=== PATIENT | female | born 1950 | race Caucasian/White ===

== ENCOUNTER 2020-05-28 07:24 | Observation (INO) | payer MEDICARE ==
[2020-05-26 14:59] LABS: BASOPHILS # (AUTO) 0.1 (0.0-0.1); BASOPHILS % 1.1 % (0.0-1.0); EOSINOPHILS # (AUTO) 0.1 (0.0-0.4); HEMATOCRIT 41.2 % (34.2-44.1); HEMOGLOBIN 13.2 g/dL (12.0-16.0); LYMPHOCYTES # (AUTO) 0.9 (1.0-3.2); LYMPHOCYTES % 13.2 % (18.0-39.1); MEAN CORPUSCULAR HEMOGLOBIN 31.4 pg (28-32); MEAN CORPUSCULAR VOLUME 98.1 fL (81-99); MONOCYTES # (AUTO) 0.5 (0.2-0.8); MONOCYTES % 7.1 % (4.4-11.3); NEUTROPHILS # (AUTO) 5.4 (2.1-6.9); PLATELET COUNT 231 x10e3/uL (140-360); RED CELL DISTRIBUTION WIDTH 13.1 % (11.7-14.4)
[2020-05-26 15:09] LABS: INR 0.91; PROTHROMBIN TIME 12.8 seconds (11.9-14.5)
[2020-05-26 15:10] LABS: PARTIAL THROMBOPLASTIN TIME 29.6 seconds (23.8-35.5)
[2020-05-26 15:14] LABS: ANION GAP 15.7 mmol/L (8-16); BLOOD UREA NITROGEN 19 mg/dL (7-26); BUN/CREATININE RATIO 22 (6-25); CALCIUM 8.9 mg/dL (8.4-10.2); CARBON DIOXIDE 23 mmol/L (22-29); CHLORIDE 107 mmol/L (98-107); CREATININE, SERUM 0.86 mg/dL (0.57-1.11); EST GLOMERULAR FILTRATION RATE > 60 ML/MIN (60-); GLUCOSE 234 mg/dL (74-118); POTASSIUM 3.7 mmol/L (3.5-5.1); SODIUM 142 mmol/L (136-145)
[~2020-05-28] VITALS: Ht 152.4 cm; Wt 62.6 kg
[~2020-05-28 07:24] MED LIST: ACETAMINOPHEN 1000 MG/100 ML 100 ML IV ONE; ACTOS15 MG PO; DIGOXIN250 MCG PO; GLIMEPIRIDE4 MG PO; HYDROCODON-ACE1 EA11 PO; IBUPROFEN 800MG/ 200ML 200 ML IV ONE; LEFLUNOMIDE20 MG PO; LIDOCAINE HCL (LTA) 4 ML SOLN ONE; LOSARTAN POTASS25 MG PO; METFORMIN HCL500 MG PO; METOPROLOL SUCC50 MG PO; NAPROXEN250 MG PO; PREDNISONE5 MG PO; SOMA350 MG PO
[2020-05-28] MEDS ORDERED: VANCOMYCIN HCL 1 GM VIAL ONE (08:29)
[2020-05-28] MEDS ORDERED: THROMBIN FOR SOLN 5,000 UNIT VIAL ONE (08:30)
[2020-05-28] MEDS ORDERED: BUPIVACAINE 0.5%/EPI 30 ML SDV INJ ONE (08:30)
[2020-05-28] MEDS ORDERED: ONDANSETRON HCL INJ 2MG/ML 2ML 2 MG/ML VIAL ONE ×2 (09:23→12:46)
[2020-05-28] MEDS ORDERED: CEFAZOLIN SOD 1 GM/NS 50ML 100 ML IV ONE (09:29)
[2020-05-28] MEDS ORDERED: SCOPOLAMINE 1.5 MG PATCH ONE (10:10)
[2020-05-28] MEDS ORDERED: HYDROCODON-ACE1 EA12 PO (11:26)
[2020-05-28] MEDS ORDERED: ONDANSETRON HCL INJ 2MG/ML 2ML 2 MG/ML VIAL IV PRN (11:30)
[2020-05-28] MEDS ORDERED: ZOLPIDEM TARTRATE 5 MG TAB PO PRN (11:30)
[2020-05-28] MEDS ORDERED: CARISOPRODOL 350 MG TAB PO PRN (11:30)
[2020-05-28] MEDS ORDERED: MAGNESIUM/ALUMINUM/SIMETHICONE 30 ML UDC PO PRN (11:30)
[2020-05-28] MEDS ORDERED: ACETAMINOPHEN 325 MG TAB PO PRN (11:30)
[2020-05-28] MEDS ORDERED: HYDROMORPHONE 2MG/ML 2 MG/ML ML IV PRN (11:30)
[2020-05-28] MEDS ORDERED: MORPHINE SULFATE INJ 4 MG/ML INJ 1ML IM PRN (11:30)
[2020-05-28] MEDS ORDERED: PROMETHAZINE HCL (IM) 25 MG/ML VIAL IM PRN (11:30)
[2020-05-28] MEDS ORDERED: DEXAMETHASONE SOD PHOS INJ 4 MG/ML VIAL ONE (12:46)
[2020-05-28] MEDS ORDERED: PROPOFOL IV EMULSION 10 MG/ML 20 ML VIAL ONE (12:46)
[2020-05-28] MEDS ORDERED: NEOSTIGMINE 1 MG/ML 10ML VIAL ONE (12:46)
[2020-05-28] MEDS ORDERED: SEVOFLURANE INHAL SOLN 250 ML PEN BTL ONE (12:46)
[2020-05-28] MEDS ORDERED: ROCURONIUM BROMIDE 10 MG/ML 5ML VIAL IV ONE (12:46)
[2020-05-28] MEDS ORDERED: GLYCOPYRROLATE INJ 0.2 MG/ML VIAL ONE (12:46)
[2020-05-28] MEDS ORDERED: LIDOCAINE HCL 2% LOCAL INJ 5 ML SDV VIAL INJ ONE (12:46)
[2020-05-28] MEDS ORDERED: FENTANYL CITRATE/PF 100MCG/2 ML INJ ONE (13:48)
[2020-05-28] MEDS ORDERED: MIDAZOLAM HCL 2 MG/2 ML VIAL ONE (13:48)
[2020-05-28] MEDS ORDERED: CARISOPRODOL 350 MG TAB ONE (14:29)
[2020-05-28] MEDS: CARISOPRODOL 350 MG TAB PO SCH ×2 (14:29→19:41)
[2020-05-28] MEDS ORDERED: OXYCODONE/ACETAMINOPHEN 5-325 1 EACH TABLET ONE (14:29)
[2020-05-28 15:44] VITALS: BP 185/82
[2020-05-28 16:03] VITALS: BP 185/82
[2020-05-28] MEDS ORDERED: LACTATED RINGER'S 1,000 ML IV SCH (16:30)
[2020-05-28] MEDS ORDERED: LOSARTAN POTASSIUM 25 MG TAB PO SCH (17:00)
[2020-05-28] MEDS ORDERED: METOPROLOL SUCCINATE 50 MG TAB XL PO SCH (17:00)
[2020-05-28] MEDS: GLIMEPIRIDE 2 MG TAB PO SCH (17:44)
[2020-05-28] MEDS: CEFAZOLIN SOD 1 GM/NS 50ML 50 ML IV SCH (17:44)
[2020-05-28] MEDS: HYDROCORTISONE SOD SUCCINATE 100 MG VIAL IV SCH (18:24)
[2020-05-28] MEDS: OXYCODONE/ACETAMINOPHEN 5-325 1 EACH TABLET PO PRN (19:41)
[2020-05-28 19:45] VITALS: BP 144/84
[2020-05-28] MEDS: LOSARTAN POTASSIUM 25 MG TAB PO SCH (20:46)
[2020-05-28] MEDS: METOPROLOL SUCCINATE 50 MG TAB XL PO SCH (20:46)
[2020-05-28 21:00] VITALS: BP 144/84
[2020-05-28] MEDS ORDERED: DEXTROSE 50% SYRINGE 50 ML IV PRN (21:30)
[2020-05-28] MEDS: INSULIN REGULAR, HUMAN 100 UNIT/1 ML 3ML VIAL SQ SCH (21:34)
[2020-05-29] VITALS: BP 129/64
[2020-05-29] MEDS: HYDROCORTISONE SOD SUCCINATE 100 MG VIAL IV SCH (01:33)
[2020-05-29] MEDS: OXYCODONE/ACETAMINOPHEN 5-325 1 EACH TABLET PO PRN (01:33)
[2020-05-29] MEDS: CEFAZOLIN SOD 1 GM/NS 50ML 50 ML IV SCH (01:33)
[2020-05-29 04:45] VITALS: BP 165/77
[2020-05-29] MEDS ORDERED: METFORMIN HCL 500 MG TAB PO SCH (08:00)
[2020-05-29] MEDS ORDERED: NAPROXEN 250 MG TAB PO SCH (08:00)
[2020-05-29] MEDS: METOPROLOL SUCCINATE 50 MG TAB XL PO SCH (08:13)
[2020-05-29] MEDS: LOSARTAN POTASSIUM 25 MG TAB PO SCH (08:14)
[2020-05-29] MEDS: GLIMEPIRIDE 2 MG TAB PO SCH (08:15)
[2020-05-29] MEDS: INSULIN REGULAR, HUMAN 100 UNIT/1 ML 3ML VIAL SQ SCH (08:17)
[2020-05-29] MEDS ORDERED: DIPHENHYDRAMINE HCL 25 MG CAP PO ONE (08:30)
[2020-05-29 08:42] VITALS: BP 151/68
[2020-05-29] MEDS ORDERED: NON-FORMULARY MEDICATION (Leflunomide 20 MG) PO SCH (09:00)
[2020-05-29] MEDS ORDERED: PREDNISONE 5 MG TAB PO SCH (09:00)
[2020-05-29] MEDS ORDERED: DIGOXIN 0.25 MG TAB PO SCH (09:00)
[2020-05-29] MEDS ORDERED: PIOGLITAZONE HCL 15 MG TAB PO SCH (09:00)
[2020-05-29 10:59] VITALS: BP 151/68
== END 2020-05-29 10:20 | disposition home or self-care (01) ==
LOC: OR 07:24 → PACU V 11:23 → MED/SURG3 15:16
PROVIDERS: ADMIT Neurological Surgery; ATTEND Neurological Surgery
DX: M51.16 Intervertebral disc disorders with radiculopathy, lumbar region (principal); Z20.822 Contact with and (suspected) exposure to COVID-19; Z01.818 Encounter for other preprocedural examination; I10 Essential (primary) hypertension; E11.9 Type 2 diabetes mellitus without complications; M06.9 Rheumatoid arthritis, unspecified
CPT/HCPCS: 36415 ×3; 63056; 71046; 72020; 80048; 82948 ×2; 85025; 85610; 85730; 86850; 86900; 88304; 88311; 93005; G0378 ×2; J0131; J0690 ×2; J1100; J1720 ×2; J2001; J2405; J2704; J2710; J3370; J7121; U0002; J2270

== ENCOUNTER → 2022-10-11 | Outpatient (CLI) | payer MEDICARE ==
[~2022-10-11] MED LIST changes: -ACETAMINOPHEN 1000 MG/100 ML 100 ML IV ONE; +HYDROCODON-ACE1 EA12 PO; -IBUPROFEN 800MG/ 200ML 200 ML IV ONE; -LIDOCAINE HCL (LTA) 4 ML SOLN ONE
== END ==
LOC: RAD 12:32
PROVIDERS: ATTEND Family Medicine
DX: I10 Essential (primary) hypertension (principal)
CPT/HCPCS: 93306

== ENCOUNTER 2024-02-03 07:37 | Observation (INO) | payer MEDICARE ==
[2024-02-03] VITALS (7 sets, daily range): BP systolic 151–182; BP diastolic 71–78; PULSE 74–116; RESP 13–18; TEMP 97.9–99.1; O2SAT 97–98
[~2024-02-03] VITALS: Ht 152.4 cm; Wt 54.4 kg
[2024-02-03] MEDS: ONDANSETRON HCL INJ 2MG/ML 2ML 2 MG/ML VIAL IV STA (08:13)
[2024-02-03] MEDS: SODIUM CHLORIDE 0.9% 500ML 500 ML IV ONE (08:13)
[2024-02-03] MEDS: DEXTROSE 5%/0.45% SOD CHL 1,000 ML IV ONE (08:13)
[2024-02-03 08:16] LABS: BASOPHILS # (AUTO) 0.1 (0.0-0.1); BASOPHILS % 1.4 % (0.0-1.0); EOSINOPHILS # (AUTO) 0.1 (0.0-0.4); EOSINOPHILS % 2.4 % (0.0-6.0); HEMATOCRIT 38.7 % (34.2-44.1); HEMOGLOBIN 11.6 g/dL (12.0-16.0); LYMPHOCYTES % 16.6 % (18.0-39.1); MEAN CORPUSCULAR VOLUME 106.9 fL (81-99); MONOCYTES # (AUTO) 0.7 (0.2-0.8); MONOCYTES % 11.7 % (4.4-11.3); NEUTROPHILS % 67.4 % (38.7-80.0); PLATELET COUNT 227 x10e3/uL (140-360); RED BLOOD COUNT 3.62 x10e6/uL (3.6-5.1); RED CELL DISTRIBUTION WIDTH 14.2 % (11.7-14.4); WHITE BLOOD COUNT 5.91 x10e3/uL (4.8-10.8)
[2024-02-03 08:22] LABS: CLARITY,URINE CLEAR (CLEAR); COLOR,URINE YELLOW (YELLOW); LEUKOCYTE ESTERASE ,URINE NEGATIVE (NEGATIVE); PH,URINE 5.5 (5 - 7)
[2024-02-03 08:23] LABS: BILIRUBIN,URINE NEGATIVE (NEGATIVE); GLUCOSE, URINE NEGATIVE (NEGATIVE); KETONES,URINE NEGATIVE (NEGATIVE); NITRITE,URINE NEGATIVE (NEGATIVE); PROTEIN,URINE DIPSTICK 2+ (NEGATIVE); URINE UROBILINOGEN 0.2 mg/dL (0.2 - 1)
[2024-02-03 08:30] LABS: INR 0.97; PROTHROMBIN TIME 13.4 seconds (11.9-14.5)
[2024-02-03 08:31] LABS: PARTIAL THROMBOPLASTIN TIME 32.8 seconds (23.8-35.5)
[2024-02-03 08:38] LABS: RBC,URINE >50 /HPF (0-5)
[2024-02-03 08:39] LABS: BACTERIA,URINE MODERATE /HPF; EPITHELIAL CELLS,URINE FEW /LPF
[2024-02-03 08:40] LABS: ALBUMIN 2.9 g/dL (3.5-5.0); ALBUMIN/GLOBULIN RATIO 0.7 (0.8-2.0); ANION GAP 14.6 mmol/L (8-16); BILIRUBIN,TOTAL 0.3 mg/dL (0.2-1.2); CALCIUM 8.9 mg/dL (8.4-10.2); CREATININE, SERUM 1.15 mg/dL (0.57-1.11); MAGNESIUM 2.1 MG/DL (1.3-2.1); POTASSIUM 3.6 mmol/L (3.5-5.1); TOTAL PROTEIN 6.8 g/dL (6.5-8.1)
[2024-02-03 08:46] LABS: TROPONIN I 0.013 ng/mL (0-0.300)
[2024-02-03] MEDS ORDERED: DEXTROSE 50% SYRINGE 50 ML IV PRN (10:15)
[2024-02-03] MEDS ORDERED: CARISOPRODOL 350 MG TAB PO PRN (19:15)
[2024-02-03] MEDS: PREDNISONE 5 MG TAB PO SCH (19:20)
[2024-02-03] MEDS: DIGOXIN 0.25 MG TAB PO SCH (19:49)
[2024-02-03] MEDS: METOPROLOL SUCCINATE 50 MG TAB XL PO SCH ×2 (19:50→20:36)
[2024-02-03] MEDS: LOSARTAN POTASSIUM 100 MG TAB PO SCH (19:50)
[2024-02-04] VITALS (7 sets, daily range): BP systolic 149–184; BP diastolic 68–98; PULSE 77–97; RESP 18–20; TEMP 98–98.9; O2SAT 96–100
[2024-02-04 05:24] LABS: BASOPHILS # (AUTO) 0.1 (0.0-0.1); BASOPHILS % 1.3 % (0.0-1.0); EOSINOPHILS # (AUTO) 0.1 (0.0-0.4); EOSINOPHILS % 1.5 % (0.0-6.0); HEMATOCRIT 32.5 % (34.2-44.1); HEMOGLOBIN 9.8 g/dL (12.0-16.0); LYMPHOCYTES # (AUTO) 0.5 (1.0-3.2); LYMPHOCYTES % 10.3 % (18.0-39.1); MEAN CORPUSCULAR HEMOGLOBIN 31.6 pg (28-32); MEAN CORPUSCULAR HGB CONC 30.2 g/dL (31-35); MEAN CORPUSCULAR VOLUME 104.8 fL (81-99); MONOCYTES # (AUTO) 0.5 (0.2-0.8); MONOCYTES % 10.3 % (4.4-11.3); NEUTROPHILS % 76.2 % (38.7-80.0); PLATELET COUNT 188 x10e3/uL (140-360); RED CELL DISTRIBUTION WIDTH 13.9 % (11.7-14.4); WHITE BLOOD COUNT 5.22 x10e3/uL (4.8-10.8)
[2024-02-04] MEDS: HYDRALAZINE HCL 20 MG/ML VIAL IV PRN (05:27)
[2024-02-04 05:52] LABS: ALBUMIN 2.5 g/dL (3.5-5.0); ALBUMIN/GLOBULIN RATIO 0.9 (0.8-2.0); ANION GAP 14.1 mmol/L (8-16); BILIRUBIN,TOTAL 0.3 mg/dL (0.2-1.2); CALCIUM 8.1 mg/dL (8.4-10.2); CREATININE, SERUM 1.01 mg/dL (0.57-1.11); POTASSIUM 4.1 mmol/L (3.5-5.1); TOTAL PROTEIN 5.4 g/dL (6.5-8.1)
[2024-02-04] MEDS: ONDANSETRON HCL INJ 2MG/ML 2ML 2 MG/ML VIAL IV PRN (06:52)
[2024-02-04] MEDS: HYDROCODONE/APAP 5MG-325MG TAB PO PRN (17:01)
[2024-02-05] VITALS (8 sets, daily range): BP systolic 124–162; BP diastolic 62–98; PULSE 78–99; RESP 16–20; TEMP 98.2–98.7; O2SAT 97–99
[2024-02-05] MEDS ORDERED: METOPROLOL TARTRATE INJ 1 MG/ML VIAL IV PRN (13:30)
[2024-02-05] MEDS: METOCLOPRAMIDE HCL 10 MG/2ML VIAL IV ONE (14:03)
== END 2024-02-05 18:32 | disposition home or self-care (01) ==
LOC: ER 07:46 → ERHOLD 10:12 → MED/SURG2 12:37
PROVIDERS: ADMIT Internal Medicine; ATTEND Family Medicine
DX: E11.649 Type 2 diabetes mellitus with hypoglycemia without coma (principal); N17.9 Acute kidney failure, unspecified; E86.0 Dehydration; T38.3X5A Adverse effect of insulin and oral hypoglycemic [antidiabetic] drugs, initial encounter; R11.2 Nausea with vomiting, unspecified; Z79.84 Long term (current) use of oral hypoglycemic drugs; I10 Essential (primary) hypertension; Y92.019 Unspecified place in single-family (private) house as the place of occurrence of the external cause
CPT/HCPCS: 36415 ×3; 71045; 80053 ×2; 81001; 82550; 82948 ×3; 83735 ×2; 84484; 85025 ×2; 85610; 85730; 87086; 93005 ×2; 99252; 99284; G0378 ×3; J0360 ×2; J0696 ×3; J2405 ×3; J2470 ×3; J2765; J7040; J7512 ×3

== ENCOUNTER 2024-03-10 13:10 | Inpatient (IN) | payer MEDICARE ==
[2024-03-10] VITALS (7 sets, daily range): BP systolic 103–116; BP diastolic 62–81; PULSE 78–88; RESP 15–16; TEMP 97.8–98.2; O2SAT 94–97
[~2024-03-10] VITALS: Ht 152.4 cm; Wt 54.4 kg
[2024-03-10 13:50] LABS: BASOPHILS # (AUTO) 0.1 (0.0-0.1); BASOPHILS % 0.6 % (0.0-1.0); EOSINOPHILS # (AUTO) 0.1 (0.0-0.4); EOSINOPHILS % 0.9 % (0.0-6.0); HEMATOCRIT 38.3 % (34.2-44.1); HEMOGLOBIN 12.2 g/dL (12.0-16.0); LYMPHOCYTES # (AUTO) 0.4 (1.0-3.2); LYMPHOCYTES % 3.8 % (18.0-39.1); MEAN CORPUSCULAR HEMOGLOBIN 32.1 pg (28-32); MEAN CORPUSCULAR HGB CONC 31.9 g/dL (31-35); MEAN CORPUSCULAR VOLUME 100.8 fL (81-99); MONOCYTES # (AUTO) 0.5 (0.2-0.8); MONOCYTES % 4.8 % (4.4-11.3); NEUTROPHILS # (AUTO) 9.6 (2.1-6.9); NEUTROPHILS % 89.3 % (38.7-80.0); PLATELET COUNT 233 x10e3/uL (140-360); RED CELL DISTRIBUTION WIDTH 13.8 % (11.7-14.4); WHITE BLOOD COUNT 10.79 x10e3/uL (4.8-10.8)
[2024-03-10 14:15] LABS: ALBUMIN 2.5 g/dL (3.5-5.0); ALBUMIN/GLOBULIN RATIO 0.6 (0.8-2.0); ANION GAP 18.6 mmol/L (8-16); BILIRUBIN,TOTAL 0.3 mg/dL (0.2-1.2); CALCIUM 8.7 mg/dL (8.4-10.2); CREATININE, SERUM 2.31 mg/dL (0.57-1.11); POTASSIUM 4.6 mmol/L (3.5-5.1); TOTAL PROTEIN 6.9 g/dL (6.5-8.1)
[2024-03-10] MEDS: ONDANSETRON HCL INJ 2MG/ML 2ML 2 MG/ML VIAL IV STA (14:19)
[2024-03-10] MEDS: FENTANYL CITRATE/PF 100MCG/2 ML INJ IV ONE (14:19)
[2024-03-10] MEDS: KETOROLAC TROMETHAMINE 30 MG/ML VIAL IV STA (14:19)
[2024-03-10] MEDS: SODIUM CHLORIDE 0.9% 1000ML 1,000 ML IV SCH (15:59)
[2024-03-10] MEDS: Morphine 4mg INJECTION 4 MG/ML INJ IV PRN (15:59)
[2024-03-10] MEDS ORDERED: ATORVASTATIN CA20 MG PO (16:07)
[2024-03-10] MEDS ORDERED: FLOMAX0.4 MG PO (16:07)
[2024-03-10] MEDS ORDERED: FENOFIBRATE160 MG PO (16:10)
[2024-03-10] MEDS ORDERED: DOXAZOSIN MESYLA2 MG PO (16:10)
[2024-03-10] MEDS ORDERED: FAMOTIDINE40 MG PO (17:18)
[2024-03-10] MEDS: ONDANSETRON HCL INJ 2MG/ML 2ML 2 MG/ML VIAL IV PRN (20:50)
[2024-03-10] MEDS ORDERED: Morphine 4mg INJECTION 4 MG/ML INJ IV PRN (23:45)
[2024-03-11] VITALS (7 sets, daily range): BP systolic 128–145; BP diastolic 63–76; PULSE 85–100; RESP 16–18; TEMP 97.6–98.2; O2SAT 92–98
[2024-03-11] MEDS: Morphine 2mg Syringe 2 MG/ML SYR IV PRN (00:07)
[2024-03-11 07:18] LABS: BILIRUBIN,URINE SMALL (NEGATIVE); CLARITY,URINE CLOUDY (CLEAR); COLOR,URINE YELLOW (YELLOW); GLUCOSE, URINE NEGATIVE (NEGATIVE); KETONES,URINE NEGATIVE (NEGATIVE); LEUKOCYTE ESTERASE ,URINE TRACE (NEGATIVE); NITRITE,URINE NEGATIVE (NEGATIVE); PH,URINE 5 (5 - 7); PROTEIN,URINE DIPSTICK 1+ (NEGATIVE); URINE UROBILINOGEN 0.2 mg/dL (0.2 - 1)
[2024-03-11 07:42] LABS: RBC,URINE >50 /HPF (0-5); WBC,URINE (MAN) 0-5 /HPF (0-5)
[2024-03-11 07:43] LABS: BACTERIA,URINE MODERATE /HPF; EPITHELIAL CELLS,URINE MODERATE /LPF
[2024-03-11] MEDS: Morphine 4mg INJECTION 4 MG/ML INJ IV PRN (09:16)
[2024-03-11 12:04] LABS: CREATININE,URINE RANDOM 132.16 mg/dL (47-110); TOTAL PROTEIN, URINE 24.5 mg/dL (1-14)
[2024-03-11 12:44] LABS: PHOSPHORUS 3.8 MG/DL (2.3-4.7); URIC ACID 8.4 mg/dL (2.6-8.0)
[2024-03-11] MEDS: SODIUM BICARBONATE 8.4% SYRING 150 ML in DEXTROSE 5% 1,000 ML IV SCH (13:20)
[2024-03-11] MEDS ORDERED: LIDOCAINE HCL 2% LOCAL INJ 5 ML SDV VIAL INJ ONE (16:40)
[2024-03-11] MEDS ORDERED: PROPOFOL IV EMULSION 10 MG/ML 20 ML VIAL ONE (16:40)
[2024-03-11] MEDS ORDERED: FENTANYL CITRATE/PF 100MCG/2 ML INJ ONE (16:41)
[2024-03-11] MEDS ORDERED: CEFTRIAXONE 1 GM VIAL ONE (16:58)
[2024-03-11] MEDS ORDERED: ONDANSETRON HCL INJ 2MG/ML 2ML 2 MG/ML VIAL ONE (17:02)
[2024-03-11] MEDS ORDERED: METOCLOPRAMIDE HCL 10 MG/2ML VIAL ONE (17:02)
[2024-03-11] MEDS ORDERED: DIPHENHYDRAMINE HCL INJ 50 MG/ML VIAL ONE (17:08)
[2024-03-11] MEDS ORDERED: ACETAMINOPHEN/CODEINE 300MG - 30MG TAB PO PRN (17:45)
[2024-03-11] MEDS ORDERED: PHENAZOPYRIDINE HCL 100 MG TAB PO PRN (17:45)
[2024-03-11] MEDS: SENNA-S TABLET PO SCH (21:23)
[2024-03-12] VITALS (29 sets, daily range): BP systolic 115–176; BP diastolic 53–104; PULSE 104–119; RESP 15–26; TEMP 99.7–99.8; O2SAT 94–100
[2024-03-12 05:13] LABS: BASOPHILS # (AUTO) 0.1 (0.0-0.1); BASOPHILS % 0.7 % (0.0-1.0); EOSINOPHILS # (AUTO) 0.3 (0.0-0.4); EOSINOPHILS % 3.7 % (0.0-6.0); HEMATOCRIT 36.8 % (34.2-44.1); HEMOGLOBIN 11.4 g/dL (12.0-16.0); LYMPHOCYTES # (AUTO) 0.9 (1.0-3.2); LYMPHOCYTES % 12.9 % (18.0-39.1); MEAN CORPUSCULAR HEMOGLOBIN 31.8 pg (28-32); MEAN CORPUSCULAR VOLUME 102.5 fL (81-99); MONOCYTES # (AUTO) 0.6 (0.2-0.8); MONOCYTES % 8.1 % (4.4-11.3); NEUTROPHILS # (AUTO) 5.2 (2.1-6.9); PLATELET COUNT 240 x10e3/uL (140-360); RED BLOOD COUNT 3.59 x10e6/uL (3.6-5.1); RED CELL DISTRIBUTION WIDTH 13.8 % (11.7-14.4); WHITE BLOOD COUNT 7.06 x10e3/uL (4.8-10.8)
[2024-03-12 05:45] LABS: ALBUMIN 2.5 g/dL (3.5-5.0); ALBUMIN/GLOBULIN RATIO 0.7 (0.8-2.0); ANION GAP 15.1 mmol/L (8-16); BILIRUBIN,TOTAL 0.5 mg/dL (0.2-1.2); CALCIUM 8.5 mg/dL (8.4-10.2); CREATININE, SERUM 2.16 mg/dL (0.57-1.11); TOTAL PROTEIN 6.1 g/dL (6.5-8.1)
[2024-03-12 05:47] LABS: POTASSIUM 3.1 mmol/L (3.5-5.1)
[2024-03-12] MEDS ORDERED: ALTEPLASE 100 MG/VIAL ONE (06:20)
[2024-03-12] MEDS: DIGOXIN INJ 0.25 MG/ML 2 ML AMP IV ONE (06:27)
[2024-03-12 06:41] LABS: INR 0.98
[2024-03-12 06:42] LABS: PARTIAL THROMBOPLASTIN TIME 30.5 seconds (23.8-35.5)
[2024-03-12 06:43] LABS: PROTHROMBIN TIME 13.6 seconds (11.9-14.5)
[2024-03-12] MEDS: ALTEPLASE 50 MG/VIAL (29 MILLION IU) IV ONE ×2 (06:50→06:57)
[2024-03-12] MEDS ORDERED: POTASSIUM CHLORIDE 20MEQ/100ML 100 ML IV ONE (07:30)
[2024-03-12] MEDS ORDERED: LABETALOL HCL 5 MG/ML 20ML VIAL IV PRN (07:30)
[2024-03-12] MEDS ORDERED: IOPAMIDOL 370 MG/ML 100 ML INFUS..BTL INJ ONE (07:42)
[2024-03-12] MEDS ORDERED: SODIUM CHLORIDE 0.9% 100 ML ONE (07:42)
[2024-03-12] MEDS: SODIUM CHLORIDE 0.9% 1000ML 1,000 ML IV SCH (08:31)
[2024-03-12] MEDS: POTASSIUM CHLORIDE 20MEQ/100ML 100 ML IV SCH (08:31)
[2024-03-12] MEDS: SOLIFENACIN SUCCINATE 5 MG TAB PO SCH (08:32)
[2024-03-12] MEDS: Morphine 2mg Syringe 2 MG/ML SYR ONE ×3 (08:45)
[2024-03-12] MEDS: ONDANSETRON HCL INJ 2MG/ML 2ML 2 MG/ML VIAL ONE ×2 (08:45)
[2024-03-12] MEDS: DIGOXIN INJ 0.25 MG/ML 2 ML AMP ONE (08:46)
[2024-03-12] MEDS ORDERED: ATORVASTATIN 40 MG TAB PO SCH (21:00)
[2024-03-13 10:12] LABS: CALCIUM 7.8 mg/dL (8.7-10.3)
== END 2024-03-12 11:11 | disposition other institution (70) | DRG 659 ==
LOC: ER 13:38 → ERHOLD 14:55 → ER 15:32 → MED/SURG 15:45 → ICU 03-12 07:00
PROVIDERS: ADMIT Family Medicine; ATTEND Family Medicine
PROC: 0T778DZ Dilation of Left Ureter with Intraluminal Device, Via Natural or Artificial Opening Endoscopic (ICD-10-PCS; 2024-03-11)
PROC: 0TCB8ZZ Extirpation of Matter from Bladder, Via Natural or Artificial Opening Endoscopic (ICD-10-PCS; 2024-03-11)
PROC: BT141ZZ Fluoroscopy of Kidneys, Ureters and Bladder using Low Osmolar Contrast (ICD-10-PCS; 2024-03-11)
PROC: 0UJH7ZZ Inspection of Vagina and Cul-de-sac, Via Natural or Artificial Opening (ICD-10-PCS; 2024-03-11)
PROC: 3E03317 Introduction of Other Thrombolytic into Peripheral Vein, Percutaneous Approach (ICD-10-PCS; principal; 2024-03-12)
DX: N13.2 Hydronephrosis with renal and ureteral calculous obstruction (principal); I63.511 Cerebral infarction due to unspecified occlusion or stenosis of right middle cerebral artery; G81.94 Hemiplegia, unspecified affecting left nondominant side; R29.716 NIHSS score 16; N17.9 Acute kidney failure, unspecified; I10 Essential (primary) hypertension; E11.9 Type 2 diabetes mellitus without complications; N23 Unspecified renal colic; F41.9 Anxiety disorder, unspecified; F32.A Depression, unspecified; M54.9 Dorsalgia, unspecified; R31.9 Hematuria, unspecified; R47.81 Slurred speech; N81.10 Cystocele, unspecified; N81.6 Rectocele; Z79.52 Long term (current) use of systemic steroids; Z88.8 Allergy status to other drugs, medicaments and biological substances
CPT/HCPCS: 36415; 70450; 70496; 70498; 74176; 74420; 76770; 80053; 81001; 82570; 82948; 83970; 84100; 84156; 84550; 85025; 85610; 85730; 87086; 93005; 94799; 99284; C1758; C1769; C2617; J0696; J1160; J1200; J1885; J2003; J2270; J2405; J2765; J3480; J7030; J7050; J7070; Q9967

== ENCOUNTER 2024-05-31 14:42 | Inpatient (IN) | payer MEDICARE ==
[2024-05-31] VITALS (8 sets, daily range): BP systolic 112–113; BP diastolic 69–82; PULSE 78–99; RESP 14–18; TEMP 97.5–97.9; O2SAT 94–97
[~2024-05-31] VITALS: Ht 152.4 cm; Wt 49.0 kg
[~2024-05-31 14:42] MED LIST changes: +ATORVASTATIN CA20 MG PO; +DOXAZOSIN MESYLA2 MG PO; +FAMOTIDINE40 MG PO; +FENOFIBRATE160 MG PO; +FLOMAX0.4 MG PO
[2024-05-31 16:03] LABS: BASOPHILS # (AUTO) 0.1 (0.0-0.1); BASOPHILS % 1.2 % (0.0-1.0); EOSINOPHILS # (AUTO) 0.4 (0.0-0.4); EOSINOPHILS % 8.3 % (0.0-6.0); HEMATOCRIT 30.2 % (34.2-44.1); HEMOGLOBIN 9.3 g/dL (12.0-16.0); LYMPHOCYTES # (AUTO) 0.8 (1.0-3.2); MEAN CORPUSCULAR HEMOGLOBIN 30.6 pg (28-32); MEAN CORPUSCULAR HGB CONC 30.8 g/dL (31-35); MEAN CORPUSCULAR VOLUME 99.3 fL (81-99); MONOCYTES # (AUTO) 0.5 (0.2-0.8); MONOCYTES % 9.1 % (4.4-11.3); NEUTROPHILS # (AUTO) 3.4 (2.1-6.9); NEUTROPHILS % 65.4 % (38.7-80.0); PLATELET COUNT 320 x10e3/uL (140-360); RED BLOOD COUNT 3.04 x10e6/uL (3.6-5.1); RED CELL DISTRIBUTION WIDTH 16.3 % (11.7-14.4); WHITE BLOOD COUNT 5.19 x10e3/uL (4.8-10.8)
[2024-05-31 16:18] LABS: INR 1.5; PROTHROMBIN TIME 18.9 seconds (11.9-14.5)
[2024-05-31 16:19] LABS: PARTIAL THROMBOPLASTIN TIME 43.6 seconds (23.8-35.5)
[2024-05-31 16:26] LABS: ALANINE AMINOTRANSFERASE < 6 IU/L (0-55); ALBUMIN 2.4 g/dL (3.5-5.0); ALBUMIN/GLOBULIN RATIO 0.6 (0.8-2.0); ALKALINE PHOSPHATASE 70 IU/L (40-150); ANION GAP 13.7 mmol/L (8-16); BILIRUBIN,TOTAL 0.4 mg/dL (0.2-1.2); BLOOD UREA NITROGEN 17 mg/dL (7-26); BUN/CREATININE RATIO 22 (6-25); CALCIUM 8.7 mg/dL (8.4-10.2); CARBON DIOXIDE 20 mmol/L (22-29); CHLORIDE 111 mmol/L (98-107); CREATININE, SERUM 0.79 mg/dL (0.57-1.11); EST GLOMERULAR FILTRATION RATE 80 ML/MIN (>=60); GLUCOSE 109 mg/dL (74-118); POTASSIUM 3.7 mmol/L (3.5-5.1); SODIUM 141 mmol/L (136-145); TOTAL PROTEIN 6.3 g/dL (6.5-8.1)
[2024-05-31] MEDS ORDERED: METHOCARBAMOL1000 MG PO (17:54)
[2024-05-31] MEDS ORDERED: lidoderm patch 5% (17:54)
[2024-05-31] MEDS ORDERED: CARAFATE1 GM PO (17:54)
[2024-05-31] MEDS ORDERED: methocarbamol PO (17:54)
[2024-05-31] MEDS ORDERED: PREPARATION H1 EAC3 RC (17:54)
[2024-05-31] MEDS ORDERED: NEURONTIN400 MG PO (17:54)
[2024-05-31] MEDS ORDERED: omeprazole PO (17:54)
[2024-05-31] MEDS ORDERED: LOPERAMIDE2 MG PO (17:54)
[2024-05-31] MEDS ORDERED: ELIQUIS5 MG PO (17:54)
[2024-05-31] MEDS ORDERED: BUSPIRONE HCL5 MG PO (17:54)
[2024-05-31] MEDS ORDERED: ASPIRIN81 MG PO (17:54)
[2024-05-31] MEDS ORDERED: CLARITIN10 MG PO (17:54)
[2024-05-31] MEDS ORDERED: MONTELUKAST SOD10 MG PO (17:54)
[2024-05-31] MEDS ORDERED: LANTUS 3ML100 UNITS/ SC (17:54)
[2024-05-31] MEDS ORDERED: TYLENOL325 MG PO (17:54)
[2024-05-31] MEDS ORDERED: cholestyramine PO (17:54)
[2024-05-31] MEDS: HYDROCODONE/APAP 5MG-325MG TAB PO ONE (17:59)
[2024-05-31] MEDS ORDERED: LORATADINE 10 MG TAB PO PRN (20:00)
[2024-05-31] MEDS ORDERED: HYDROCODONE/APAP 5MG-325MG TAB PO PRN (20:00)
[2024-05-31] MEDS ORDERED: INSULIN GLARGINE 100 UNITS/ML VIAL SQ PRN (20:00)
[2024-05-31] MEDS ORDERED: LOPERAMIDE HCL 2 MG CAP PO PRN (20:00)
[2024-05-31 20:30] LABS: % IRON SATURATION 35 % (15-50); IRON 55 ug/dL (50-170); TOTAL IRON BINDING CAPACITY 158 ug/dL (261-478); TRANSFERRIN 113 mg/dL (180-382)
[2024-05-31] MEDS: MONTELUKAST SODIUM 10 MG TAB PO SCH (21:15)
[2024-05-31] MEDS: HYDROCODONE/APAP 5MG-325MG TAB PO PRN (21:15)
[2024-05-31] MEDS: ATORVASTATIN 20 MG TAB PO SCH (21:15)
[2024-05-31] MEDS: METHOCARBAMOL 500 MG TAB PO SCH (21:16)
[2024-05-31] MEDS ORDERED: LIDOCAINE 4% PATCH TP SCH (22:30)
[2024-05-31] MEDS: LIDOCAINE 4% PATCH TP SCH (22:42)
[2024-06-01 00:38] VITALS: BP 134/88; PULSE 117; RESP 18; TEMP 98; O2SAT 98
[2024-06-01 07:41] VITALS: PULSE 80; RESP 18; O2SAT 98
[2024-06-01 08:40] VITALS: BP 161/81; PULSE 127; RESP 20; TEMP 98.4; O2SAT 98
[2024-06-01] MEDS: Leflunomide 20 MG PO SCH (09:00)
[2024-06-01] MEDS: ASPIRIN 81 MG CHEW TAB PO SCH (09:13)
[2024-06-01] MEDS: APIXABAN 5 MG TABLET PO SCH (09:14)
[2024-06-01] MEDS: GABAPENTIN 400 MG CAP PO SCH (09:14)
[2024-06-01] MEDS: BUSPIRONE HCL 5 MG TAB PO SCH (09:14)
[2024-06-01] MEDS: SUCRALFATE 1 GM TAB PO SCH (09:14)
[2024-06-01] MEDS: LOSARTAN POTASSIUM 25 MG TAB PO SCH (09:14)
[2024-06-01] MEDS: METOPROLOL SUCCINATE 50 MG TAB XL PO SCH (09:14)
[2024-06-01] MEDS: ACETAMINOPHEN 325 MG TAB PO PRN (09:19)
[2024-06-01 10:24] VITALS: BP 161/81; PULSE 127; RESP 20; TEMP 98.4; O2SAT 98
[2024-06-01] MEDS: ONDANSETRON HCL INJ 2MG/ML 2ML 2 MG/ML VIAL IV PRN (10:33)
== END 2024-06-01 13:08 | disposition home or self-care (01) | DRG 812 ==
LOC: ER 14:53 → ERHOLD 15:18 → MED/SURG3 17:00
PROVIDERS: ADMIT Family Medicine; ATTEND Family Medicine
DX: D50.9 Iron deficiency anemia, unspecified (principal); I69.354 Hemiplegia and hemiparesis following cerebral infarction affecting left non-dominant side; E44.0 Moderate protein-calorie malnutrition; E11.42 Type 2 diabetes mellitus with diabetic polyneuropathy; I10 Essential (primary) hypertension; F41.9 Anxiety disorder, unspecified; F32.A Depression, unspecified; M54.9 Dorsalgia, unspecified; M06.9 Rheumatoid arthritis, unspecified; E78.5 Hyperlipidemia, unspecified; Z68.21 Body mass index [BMI] 21.0-21.9, adult; Z79.82 Long term (current) use of aspirin; Z79.52 Long term (current) use of systemic steroids; Z88.8 Allergy status to other drugs, medicaments and biological substances
CPT/HCPCS: 36415; 80053; 83540; 83880; 84466; 85025; 85610; 85730; 86850; 86900; 94799; 99284; J2405

== ENCOUNTER 2024-06-26 11:06 | Emergency (ER) | payer MEDICARE ==
[~2024-06-26] VITALS: Ht 152.4 cm; Wt 42.6 kg
[~2024-06-26 11:06] MED LIST changes: +ASPIRIN81 MG PO; +BUSPIRONE HCL5 MG PO; +CARAFATE1 GM PO; +CLARITIN10 MG PO; +ELIQUIS5 MG PO; +LANTUS 3ML100 UNITS/ SC; +LOPERAMIDE2 MG PO; +METHOCARBAMOL1000 MG PO; +MONTELUKAST SOD10 MG PO; +NEURONTIN400 MG PO; +PREPARATION H1 EAC3 RC; +TYLENOL325 MG PO; +cholestyramine PO; +lidoderm patch 5%; +methocarbamol PO; +omeprazole PO
[2024-06-26 12:51] LABS: BASOPHILS % 0.5 % (0.0-1.0); HEMATOCRIT 28.2 % (34.2-44.1); HEMOGLOBIN 8.7 g/dL (12.0-16.0); LYMPHOCYTES # (AUTO) 0.4 (1.0-3.2); LYMPHOCYTES % 9.7 % (18.0-39.1); MEAN CORPUSCULAR HEMOGLOBIN 30.9 pg (28-32); MEAN CORPUSCULAR HGB CONC 30.9 g/dL (31-35); MONOCYTES # (AUTO) 0.2 (0.2-0.8); MONOCYTES % 4.7 % (4.4-11.3); NEUTROPHILS # (AUTO) 3.3 (2.1-6.9); NEUTROPHILS % 84.8 % (38.7-80.0); PLATELET COUNT 393 x10e3/uL (140-360); RED BLOOD COUNT 2.82 x10e6/uL (3.6-5.1); RED CELL DISTRIBUTION WIDTH 15.8 % (11.7-14.4); WHITE BLOOD COUNT 3.83 x10e3/uL (4.8-10.8)
[2024-06-26 13:12] LABS: ANION GAP 13.6 mmol/L (8-16); CALCIUM 8.4 mg/dL (8.4-10.2); CREATININE, SERUM 0.79 mg/dL (0.57-1.11); POTASSIUM 4.6 mmol/L (3.5-5.1)
[2024-06-26 13:15] VITALS: PULSE 79; RESP 21; TEMP 98.1; O2SAT 99
[2024-06-26 19:05] LABS: INR 1.2; PROTHROMBIN TIME 15.9 seconds (11.9-14.5)
[2024-06-26 19:06] LABS: PARTIAL THROMBOPLASTIN TIME 34.8 seconds (23.8-35.5)
[2024-06-27] MEDS ORDERED: OMEPRAZOLE40 MG PO (12:11)
[2024-06-27] MEDS ORDERED: HYDROCODON-ACE1 EA12 PO (12:11)
[2024-06-27] MEDS ORDERED: CYMBALTA20 MG PO (12:15)
[2024-06-27] MEDS ORDERED: AMIODARONE HCL200 MG PO (12:15)
[2024-06-27] MEDS ORDERED: CLARITHROMYCIN500 MG PO (12:15)
[2024-06-27] MEDS ORDERED: MEGESTROL400 MG/10 PO (12:15)
[2024-06-27] MEDS ORDERED: CIPRO500 MG PO (12:15)
== END 2024-06-26 14:30 | disposition home or self-care (01) ==
LOC: ER 11:11
DX: R31.9 Hematuria, unspecified (principal); L89.529 Pressure ulcer of left ankle, unspecified stage; I10 Essential (primary) hypertension; E11.40 Type 2 diabetes mellitus with diabetic neuropathy, unspecified; I48.91 Unspecified atrial fibrillation; M06.9 Rheumatoid arthritis, unspecified; I73.9 Peripheral vascular disease, unspecified; G62.9 Polyneuropathy, unspecified; M54.9 Dorsalgia, unspecified; G89.29 Other chronic pain; F41.9 Anxiety disorder, unspecified; F32.A Depression, unspecified; R94.31 Abnormal electrocardiogram [ECG] [EKG]
CPT/HCPCS: 36415; 71045; 80048; 85025; 85610; 85730; 93005; 99284

== ENCOUNTER → 2024-06-28 | Day surgery (SDC) | payer MEDICARE ==
[~2024-06-28] MED LIST changes: +AMIODARONE HCL200 MG PO; +CIPRO500 MG PO; +CLARITHROMYCIN500 MG PO; +CYMBALTA20 MG PO; +EPHEDRINE SULFATE INJ 50 MG/ML VIAL ONE; +FENTANYL CITRATE/PF 100MCG/2 ML INJ ONE; +GENTAMICIN 80MG/NS 100 ML 200 ML IV ONE; +LIDOCAINE HCL 2% LOCAL INJ 5 ML SDV VIAL INJ ONE; +MEGESTROL400 MG/10 PO; +METOCLOPRAMIDE HCL 10 MG/2ML VIAL ONE; +OMEPRAZOLE40 MG PO; +ONDANSETRON HCL INJ 2MG/ML 2ML 2 MG/ML VIAL ONE; +PHENAZOPYRIDINE HCL 100 MG TAB ONE; +PIPERACILLIN/TAZOBACTAM 3.375 GM VIAL ONE; +PROPOFOL IV EMULSION 10 MG/ML 20 ML VIAL ONE; +SEVOFLURANE INHAL SOLN 250 ML PEN BTL ONE; +SODIUM CHLORIDE 0.9% 1000ML 1,000 ML ONE
[2024-06-28 18:29] VITALS: TEMP 97
[2024-06-28] MEDS: PHENAZOPYRIDINE HCL 100 MG TAB PO ONE ×2 (18:50)
[2024-06-28 19:30] VITALS: BP 141/74; PULSE 88; RESP 14; O2SAT 94
== END | disposition home or self-care (01) ==
LOC: OR 12:00
PROVIDERS: ATTEND Urology
DX: N20.0 Calculus of kidney (principal); Z46.6 Encounter for fitting and adjustment of urinary device; N20.1 Calculus of ureter; N21.0 Calculus in bladder; N39.0 Urinary tract infection, site not specified; N81.10 Cystocele, unspecified; N81.6 Rectocele; N95.2 Postmenopausal atrophic vaginitis; N36.41 Hypermobility of urethra; N36.2 Urethral caruncle; I69.354 Hemiplegia and hemiparesis following cerebral infarction affecting left non-dominant side; D64.9 Anemia, unspecified; I10 Essential (primary) hypertension; I48.91 Unspecified atrial fibrillation; E11.9 Type 2 diabetes mellitus without complications; K21.9 Gastro-esophageal reflux disease without esophagitis; M06.9 Rheumatoid arthritis, unspecified; M54.9 Dorsalgia, unspecified; F41.9 Anxiety disorder, unspecified; F32.A Depression, unspecified; Z88.2 Allergy status to sulfonamides; Z88.8 Allergy status to other drugs, medicaments and biological substances; Z88.1 Allergy status to other antibiotic agents; Z91.041 Radiographic dye allergy status; Z79.02 Long term (current) use of antithrombotics/antiplatelets; Z79.82 Long term (current) use of aspirin; Z79.4 Long term (current) use of insulin; Z79.899 Other long term (current) drug therapy
CPT/HCPCS: 36415; 52356; 74018; 74420; 82948; 84550; 87086; 88300; C1769; C2617; J1580; J2003; J2405; J2543; J2704; J2765; J3010; J7030

== ENCOUNTER 2024-09-18 21:14 | Inpatient (IN) | payer MEDICARE ==
[~2024-09-18] VITALS: Ht 152.4 cm; Wt 45.4 kg
[~2024-09-18 21:14] MED LIST changes: -ACETAMINOPHEN 1000 MG/100 ML 0 ML IV ONE; -DEXAMETHASONE SOD PHOS INJ 4 MG/ML SDV ONE; -FAMOTIDINE 20 MG/2 ML VIAL IV ONE; -FENTANYL CITRATE/PF 100MCG/2 ML INJ ONE; -LIDOCAINE HCL 2% LOCAL INJ 5 ML SDV VIAL INJ ONE; -ONDANSETRON HCL INJ 2MG/ML 2ML 2 MG/ML VIAL ONE; -PROPOFOL IV EMULSION 10 MG/ML 20 ML VIAL ONE; -SEVOFLURANE INHAL SOLN 250 ML PEN BTL ONE
[2024-09-18 22:37] LABS: BASOPHILS # (AUTO) 0.1 (0.0-0.1); BASOPHILS % 0.3 % (0.0-1.0); EOSINOPHILS # (AUTO) 0.1 (0.0-0.4); EOSINOPHILS % 0.7 % (0.0-6.0); HEMATOCRIT 40.2 % (34.2-44.1); HEMOGLOBIN 12.3 g/dL (12.0-16.0); LYMPHOCYTES # (AUTO) 0.4 (1.0-3.2); LYMPHOCYTES % 2.4 % (18.0-39.1); MEAN CORPUSCULAR HEMOGLOBIN 31.5 pg (28-32); MEAN CORPUSCULAR HGB CONC 30.6 g/dL (31-35); MEAN CORPUSCULAR VOLUME 103.1 fL (81-99); MONOCYTES # (AUTO) 0.5 (0.2-0.8); MONOCYTES % 3.2 % (4.4-11.3); NEUTROPHILS # (AUTO) 14.9 (2.1-6.9); PLATELET COUNT 298 x10e3/uL (140-360); WHITE BLOOD COUNT 16.02 x10e3/uL (4.8-10.8)
[2024-09-18 22:46] LABS: BILIRUBIN,URINE NEGATIVE (NEGATIVE); CLARITY,URINE SL CLOUDY (CLEAR); COLOR,URINE AMBER (YELLOW); GLUCOSE, URINE 1+ (NEGATIVE); KETONES,URINE 1+ (NEGATIVE); LEUKOCYTE ESTERASE ,URINE SMALL (NEGATIVE); NITRITE,URINE POSITIVE (NEGATIVE); PH,URINE 5.5 (5 - 7); PROTEIN,URINE DIPSTICK >=300 (NEGATIVE); URINE UROBILINOGEN 0.2 mg/dL (0.2 - 1)
[2024-09-18] MEDS: ONDANSETRON HCL INJ 2MG/ML 2ML 2 MG/ML VIAL IV STA (22:56)
[2024-09-18] MEDS: SODIUM CHLORIDE 0.9% 1000ML 1,000 ML IV ONE (22:57)
[2024-09-18] MEDS: ACETAMINOPHEN 1000 MG/100 ML IV STA (22:58)
[2024-09-18 23:01] LABS: ALBUMIN 2.9 g/dL (3.5-5.0); ALBUMIN/GLOBULIN RATIO 0.7 (0.8-2.0); ANION GAP 19.4 mmol/L (8-16); BILIRUBIN,TOTAL 0.4 mg/dL (0.2-1.2); CALCIUM 9.1 mg/dL (8.4-10.2); CREATININE, SERUM 1.17 mg/dL (0.57-1.11); TOTAL PROTEIN 7.3 g/dL (6.5-8.1)
[2024-09-18 23:02] LABS: POTASSIUM 3.4 mmol/L (3.5-5.1)
[2024-09-18 23:07] LABS: TROPONIN I 0.154 ng/mL (0-0.300)
[2024-09-18 23:13] LABS: INR 1.08; PARTIAL THROMBOPLASTIN TIME 22.6 seconds (23.8-35.5)
[2024-09-18 23:39] LABS: RBC,URINE 21-50 /HPF (0-5); WBC,URINE (MAN) >50 /HPF (0-5)
[2024-09-18 23:40] LABS: BACTERIA,URINE MANY /HPF; EPITHELIAL CELLS,URINE FEW /LPF
[2024-09-19] VITALS (13 sets, daily range): BP systolic 117–177; BP diastolic 71–109; PULSE 92–149; RESP 16–22; TEMP 98.9–102.5; O2SAT 90–100
[2024-09-19] MEDS: SODIUM CHLORIDE 0.9% 1000ML 1,000 ML IV SCH (02:28)
[2024-09-19 03:05] LABS: INFLUENZA A AG NEGATIVE (NEGATIVE)
[2024-09-19 03:06] LABS: CORONAVIRUS COVID-19 AG NEGATIVE (NEGATIVE); INFLUENZA B AG NEGATIVE (NEGATIVE)
[2024-09-19 05:55] LABS: TROPONIN I 0.176 ng/mL (0-0.300)
[2024-09-19] MEDS: ONDANSETRON HCL INJ 2MG/ML 2ML 2 MG/ML VIAL IV PRN (07:08)
[2024-09-19] MEDS: ACETAMINOPHEN 1000 MG/100 ML IV PRN (09:33)
[2024-09-19] MEDS: PROMETHAZINE 12.5MG/ NACL 0.9% 12.5 MG/50 ML BAG IV ONE (09:33)
[2024-09-19] MEDS: METOPROLOL TARTRATE INJ 1 MG/ML VIAL IV ONE (11:07)
[2024-09-19] MEDS ORDERED: METOPROLOL SUCCINATE 50 MG TAB XL PO PRN (14:15)
[2024-09-19] MEDS ORDERED: ACETAMINOPHEN 325 MG TAB PO PRN (14:15)
[2024-09-19] MEDS ORDERED: HYDROCODONE/APAP 7.5MG-325MG 1 EA TAB PO PRN (14:15)
[2024-09-19] MEDS: METOCLOPRAMIDE HCL 10 MG/2ML VIAL IV ONE (15:32)
[2024-09-19] MEDS: PROMETHAZINE 12.5MG/ NACL 0.9% 12.5 MG/50 ML BAG IV PRN (15:39)
[2024-09-19 16:59] LABS: TROPONIN I 0.184 ng/mL (0-0.300)
[2024-09-19] MEDS: GABAPENTIN 400 MG CAP PO SCH (17:11)
[2024-09-19] MEDS: LOSARTAN POTASSIUM 25 MG TAB PO SCH (17:11)
[2024-09-19] MEDS: TAMSULOSIN HCL 0.4 MG CAP PO SCH (20:54)
[2024-09-19] MEDS: DULOXETINE HCL 20 MG DELAYED RELEASE PO SCH (20:55)
[2024-09-19] MEDS: ATORVASTATIN 20 MG TAB PO SCH (20:55)
[2024-09-20] VITALS (10 sets, daily range): BP systolic 154–179; BP diastolic 71–95; PULSE 88–103; RESP 16–20; TEMP 97.6–98.9; O2SAT 95–100
[2024-09-20 05:22] LABS: BASOPHILS # (AUTO) 0.1 (0.0-0.1); BASOPHILS % 0.5 % (0.0-1.0); EOSINOPHILS # (AUTO) 0.1 (0.0-0.4); HEMATOCRIT 28.1 % (34.2-44.1); HEMOGLOBIN 8.4 g/dL (12.0-16.0); LYMPHOCYTES # (AUTO) 0.4 (1.0-3.2); LYMPHOCYTES % 3.4 % (18.0-39.1); MEAN CORPUSCULAR HEMOGLOBIN 31.8 pg (28-32); MEAN CORPUSCULAR HGB CONC 29.9 g/dL (31-35); MEAN CORPUSCULAR VOLUME 106.4 fL (81-99); MONOCYTES # (AUTO) 0.6 (0.2-0.8); MONOCYTES % 5.6 % (4.4-11.3); NEUTROPHILS # (AUTO) 9.8 (2.1-6.9); NEUTROPHILS % 88.9 % (38.7-80.0); PLATELET COUNT 188 x10e3/uL (140-360); RED BLOOD COUNT 2.64 x10e6/uL (3.6-5.1); RED CELL DISTRIBUTION WIDTH 14.2 % (11.7-14.4); WHITE BLOOD COUNT 11.02 x10e3/uL (4.8-10.8)
[2024-09-20 05:59] LABS: ALBUMIN 2.1 g/dL (3.5-5.0); ALBUMIN/GLOBULIN RATIO 0.6 (0.8-2.0); ANION GAP 12.7 mmol/L (8-16); BILIRUBIN,TOTAL 0.4 mg/dL (0.2-1.2); CREATININE, SERUM 0.86 mg/dL (0.57-1.11); TOTAL PROTEIN 5.4 g/dL (6.5-8.1)
[2024-09-20 06:01] LABS: POTASSIUM 2.7 mmol/L (3.5-5.1)
[2024-09-20] MEDS: BUSPIRONE HCL 5 MG TAB PO SCH (08:58)
[2024-09-20] MEDS: MEGACE 400 MG / 10 ML CUP PO SCH (08:58)
[2024-09-20] MEDS: SUCRALFATE 1 GM TAB PO SCH (08:59)
[2024-09-20] MEDS: PANTOPRAZOLE SODIUM 20 MG TABLET.DR PO SCH (08:59)
[2024-09-20] MEDS ORDERED: POTASSIUM CHLORIDE 10MEQ/100ML 100 ML IV ONE (09:00)
[2024-09-20] MEDS: POTASSIUM CHLORIDE 20MEQ/100ML 100 ML IV SCH (09:00)
[2024-09-20] MEDS: AMIODARONE HCL 200 MG TAB PO SCH (09:08)
[2024-09-20] MEDS: POTASSIUM CHLORIDE 20 MEQ TAB CR PO ONE (16:35)
[2024-09-20] MEDS: HYDROCODONE/APAP 7.5MG-325MG 1 EA TAB PO PRN (20:20)
[2024-09-21] VITALS (9 sets, daily range): BP systolic 149–184; BP diastolic 84–98; PULSE 73–106; RESP 16–20; TEMP 97.1–98.9; O2SAT 93–100
[2024-09-21] MEDS: MAGNESIUM SULFATE 2GM/50ML 50 ML IV ONE (05:28)
[2024-09-21 05:33] LABS: BASOPHILS # (AUTO) 0.1 (0.0-0.1); BASOPHILS % 0.8 % (0.0-1.0); EOSINOPHILS # (AUTO) 0.3 (0.0-0.4); EOSINOPHILS % 4.4 % (0.0-6.0); HEMATOCRIT 26.1 % (34.2-44.1); HEMOGLOBIN 7.8 g/dL (12.0-16.0); LYMPHOCYTES # (AUTO) 0.6 (1.0-3.2); LYMPHOCYTES % 7.1 % (18.0-39.1); MEAN CORPUSCULAR HEMOGLOBIN 31.6 pg (28-32); MEAN CORPUSCULAR HGB CONC 29.9 g/dL (31-35); MEAN CORPUSCULAR VOLUME 105.7 fL (81-99); MONOCYTES # (AUTO) 0.6 (0.2-0.8); MONOCYTES % 7.3 % (4.4-11.3); NEUTROPHILS # (AUTO) 6.2 (2.1-6.9); NEUTROPHILS % 79.6 % (38.7-80.0); PLATELET COUNT 171 x10e3/uL (140-360); RED BLOOD COUNT 2.47 x10e6/uL (3.6-5.1); RED CELL DISTRIBUTION WIDTH 14.2 % (11.7-14.4); WHITE BLOOD COUNT 7.76 x10e3/uL (4.8-10.8)
[2024-09-21 05:50] LABS: ALBUMIN 2.1 g/dL (3.5-5.0); ALBUMIN/GLOBULIN RATIO 0.7 (0.8-2.0); BILIRUBIN,TOTAL 0.3 mg/dL (0.2-1.2); CALCIUM 8.1 mg/dL (8.4-10.2); CREATININE, SERUM 0.74 mg/dL (0.57-1.11)
[2024-09-21] MEDS: APIXABAN 5 MG TABLET PO SCH (09:15)
[2024-09-21] MEDS: METOPROLOL SUCCINATE 25 MG TAB XL PO SCH (12:31)
[2024-09-22] VITALS (9 sets, daily range): BP systolic 163–175; BP diastolic 62–100; PULSE 78–90; RESP 16–21; TEMP 97–98; O2SAT 97–100
[2024-09-22 06:42] LABS: BASOPHILS # (AUTO) 0.1 (0.0-0.1); BASOPHILS % 0.8 % (0.0-1.0); EOSINOPHILS # (AUTO) 0.4 (0.0-0.4); EOSINOPHILS % 6.8 % (0.0-6.0); HEMATOCRIT 27.5 % (34.2-44.1); HEMOGLOBIN 8.4 g/dL (12.0-16.0); LYMPHOCYTES # (AUTO) 0.7 (1.0-3.2); LYMPHOCYTES % 11.9 % (18.0-39.1); MEAN CORPUSCULAR HEMOGLOBIN 31.7 pg (28-32); MEAN CORPUSCULAR HGB CONC 30.5 g/dL (31-35); MEAN CORPUSCULAR VOLUME 103.8 fL (81-99); MONOCYTES # (AUTO) 0.6 (0.2-0.8); MONOCYTES % 9.3 % (4.4-11.3); NEUTROPHILS # (AUTO) 4.4 (2.1-6.9); NEUTROPHILS % 70.7 % (38.7-80.0); PLATELET COUNT 160 x10e3/uL (140-360); RED BLOOD COUNT 2.65 x10e6/uL (3.6-5.1); WHITE BLOOD COUNT 6.21 x10e3/uL (4.8-10.8)
[2024-09-22 06:53] LABS: ALBUMIN 2.1 g/dL (3.5-5.0); ALBUMIN/GLOBULIN RATIO 0.6 (0.8-2.0); ANION GAP 11.7 mmol/L (8-16); BILIRUBIN,TOTAL 0.4 mg/dL (0.2-1.2); CALCIUM 7.6 mg/dL (8.4-10.2); CREATININE, SERUM 0.72 mg/dL (0.57-1.11); MAGNESIUM 1.6 MG/DL (1.3-2.1); TOTAL PROTEIN 5.4 g/dL (6.5-8.1)
[2024-09-22 07:21] LABS: POTASSIUM 2.7 mmol/L (3.5-5.1)
[2024-09-22] MEDS: POTASSIUM CHLORIDE 10MEQ EA PO ONE (09:24)
[2024-09-22] MEDS: METOPROLOL SUCCINATE 50 MG TAB XL PO SCH ×2 (09:26→21:23)
[2024-09-22] MEDS: AMLODIPINE BESYLATE 5 MG TAB PO SCH (13:49)
[2024-09-22] MEDS: MAGNESIUM SULFATE 2GM/50ML 50 ML IV ONE (13:50)
[2024-09-23] VITALS (8 sets, daily range): BP systolic 147–188; BP diastolic 78–83; PULSE 78–93; RESP 16–20; TEMP 97.7–98.6; O2SAT 96–99
[2024-09-23 05:55] LABS: BASOPHILS # (AUTO) 0.1 (0.0-0.1); BASOPHILS % 1.1 % (0.0-1.0); EOSINOPHILS # (AUTO) 0.3 (0.0-0.4); EOSINOPHILS % 4.9 % (0.0-6.0); HEMATOCRIT 26.1 % (34.2-44.1); LYMPHOCYTES # (AUTO) 0.9 (1.0-3.2); LYMPHOCYTES % 13.7 % (18.0-39.1); MEAN CORPUSCULAR HEMOGLOBIN 31.4 pg (28-32); MEAN CORPUSCULAR HGB CONC 30.7 g/dL (31-35); MEAN CORPUSCULAR VOLUME 102.4 fL (81-99); MONOCYTES # (AUTO) 0.7 (0.2-0.8); MONOCYTES % 10.7 % (4.4-11.3); NEUTROPHILS # (AUTO) 4.5 (2.1-6.9); PLATELET COUNT 171 x10e3/uL (140-360); RED BLOOD COUNT 2.55 x10e6/uL (3.6-5.1); RED CELL DISTRIBUTION WIDTH 13.9 % (11.7-14.4); WHITE BLOOD COUNT 6.57 x10e3/uL (4.8-10.8)
[2024-09-23 06:38] LABS: ALBUMIN 2.1 g/dL (3.5-5.0); ALBUMIN/GLOBULIN RATIO 0.6 (0.8-2.0); ANION GAP 11.8 mmol/L (8-16); BILIRUBIN,TOTAL 0.4 mg/dL (0.2-1.2); CALCIUM 7.8 mg/dL (8.4-10.2); CREATININE, SERUM 0.71 mg/dL (0.57-1.11); MAGNESIUM 1.7 MG/DL (1.3-2.1); TOTAL PROTEIN 5.4 g/dL (6.5-8.1)
[2024-09-23 06:41] LABS: POTASSIUM 2.8 mmol/L (3.5-5.1)
[2024-09-23] MEDS: POTASSIUM CHLORIDE 20 MEQ TAB CR PO STA (11:03)
[2024-09-23] MEDS: POTASSIUM CHLORIDE 20MEQ/100ML 100 ML IV SCH (12:00)
[2024-09-23] MEDS: LORATADINE 10 MG TAB PO PRN (22:13)
[2024-09-24] VITALS (8 sets, daily range): BP systolic 139–173; BP diastolic 61–90; PULSE 61–84; RESP 16–19; TEMP 97.3–98.8; O2SAT 94–97
[2024-09-24 05:31] LABS: BASOPHILS # (AUTO) 0.1 (0.0-0.1); BASOPHILS % 1.1 % (0.0-1.0); EOSINOPHILS # (AUTO) 0.3 (0.0-0.4); EOSINOPHILS % 5.2 % (0.0-6.0); HEMATOCRIT 26.1 % (34.2-44.1); LYMPHOCYTES # (AUTO) 1.3 (1.0-3.2); LYMPHOCYTES % 19.2 % (18.0-39.1); MEAN CORPUSCULAR HEMOGLOBIN 30.8 pg (28-32); MEAN CORPUSCULAR HGB CONC 30.7 g/dL (31-35); MEAN CORPUSCULAR VOLUME 100.4 fL (81-99); MONOCYTES # (AUTO) 0.7 (0.2-0.8); MONOCYTES % 10.6 % (4.4-11.3); NEUTROPHILS # (AUTO) 4.1 (2.1-6.9); NEUTROPHILS % 63.4 % (38.7-80.0); PLATELET COUNT 182 x10e3/uL (140-360); WHITE BLOOD COUNT 6.52 x10e3/uL (4.8-10.8)
[2024-09-24 06:06] LABS: ALBUMIN 2.1 g/dL (3.5-5.0); ALBUMIN/GLOBULIN RATIO 0.8 (0.8-2.0); ANION GAP 11.7 mmol/L (8-16); BILIRUBIN,TOTAL 0.3 mg/dL (0.2-1.2); CALCIUM 8.1 mg/dL (8.4-10.2); CREATININE, SERUM 0.72 mg/dL (0.57-1.11); MAGNESIUM 1.5 MG/DL (1.3-2.1); POTASSIUM 3.7 mmol/L (3.5-5.1); TOTAL PROTEIN 4.9 g/dL (6.5-8.1)
[2024-09-24] MEDS: AMLODIPINE BESYLATE 10 MG TAB PO SCH (09:18)
[2024-09-24] MEDS: SODIUM BICARBONATE 650 MG TAB PO SCH (09:19)
== END 2024-09-24 18:30 | disposition home or self-care (01) | DRG 698 ==
LOC: ER 21:22 → ERHOLD 09-19 00:48 → MED/SURG 09-19 03:00
PROVIDERS: ADMIT Family Medicine; ATTEND Family Medicine
PROC: 3E0333Z Introduction of Anti-inflammatory into Peripheral Vein, Percutaneous Approach (ICD-10-PCS; principal; 2024-09-19)
DX: T83.593A Infection and inflammatory reaction due to other urinary stents, initial encounter (principal); A41.9 Sepsis, unspecified organism; R65.20 Severe sepsis without septic shock; G93.41 Metabolic encephalopathy; E87.20 Acidosis, unspecified; I69.954 Hemiplegia and hemiparesis following unspecified cerebrovascular disease affecting left non-dominant side; N13.6 Pyonephrosis; N17.9 Acute kidney failure, unspecified; Y83.1 Surgical operation with implant of artificial internal device as the cause of abnormal reaction of the patient, or of later complication, without mention of misadventure at the time of the procedure; L89.896 Pressure-induced deep tissue damage of other site; I10 Essential (primary) hypertension; E11.40 Type 2 diabetes mellitus with diabetic neuropathy, unspecified; I48.0 Paroxysmal atrial fibrillation; D64.9 Anemia, unspecified; E87.6 Hypokalemia; E83.42 Hypomagnesemia; E78.5 Hyperlipidemia, unspecified; K21.9 Gastro-esophageal reflux disease without esophagitis; N36.8 Other specified disorders of urethra; R31.29 Other microscopic hematuria; M06.9 Rheumatoid arthritis, unspecified; M54.50 Low back pain, unspecified; F41.9 Anxiety disorder, unspecified; F32.A Depression, unspecified; Z11.52 Encounter for screening for COVID-19; Z79.01 Long term (current) use of anticoagulants; Z90.49 Acquired absence of other specified parts of digestive tract; Z90.710 Acquired absence of both cervix and uterus; Z91.041 Radiographic dye allergy status; Z88.2 Allergy status to sulfonamides; Z88.1 Allergy status to other antibiotic agents; Z87.891 Personal history of nicotine dependence; Z83.3 Family history of diabetes mellitus; Z82.49 Family history of ischemic heart disease and other diseases of the circulatory system
CPT/HCPCS: 36415; 71045; 74176; 80053; 81001; 82550; 82948; 83605; 83735; 84132; 84484; 85025; 85610; 85730; 87040; 93005; 93306; 94799; 99252; 99285; J2405; J2543; J2550; J2765; J3475; J3480; J7030

== ENCOUNTER → 2024-09-18 | Day surgery (SDC) | payer MEDICARE ==
[~2024-09-18] MED LIST changes: +ACETAMINOPHEN 1000 MG/100 ML 0 ML IV ONE; +DEXAMETHASONE SOD PHOS INJ 4 MG/ML SDV ONE; -EPHEDRINE SULFATE INJ 50 MG/ML VIAL ONE; +FAMOTIDINE 20 MG/2 ML VIAL IV ONE; -GENTAMICIN 80MG/NS 100 ML 200 ML IV ONE; -METOCLOPRAMIDE HCL 10 MG/2ML VIAL ONE; -PHENAZOPYRIDINE HCL 100 MG TAB ONE; -PIPERACILLIN/TAZOBACTAM 3.375 GM VIAL ONE; -SODIUM CHLORIDE 0.9% 1000ML 1,000 ML ONE; +VESICARE10 MG PO
[2024-09-18] MEDS: CEFTRIAXONE 1 GM VIAL ONE (12:24)
[2024-09-18] MEDS: SODIUM CHLORIDE 0.9% 1000ML 1,000 ML ONE (12:26)
[2024-09-18] MEDS: GENTAMICIN 80MG/NS 100 ML 100 ML IV ONE (12:26)
[2024-09-18 12:43] LABS: BASOPHILS # (AUTO) 0.1 (0.0-0.1); BASOPHILS % 0.8 % (0.0-1.0); EOSINOPHILS # (AUTO) 0.3 (0.0-0.4); EOSINOPHILS % 3.9 % (0.0-6.0); HEMATOCRIT 31.3 % (34.2-44.1); HEMOGLOBIN 9.5 g/dL (12.0-16.0); LYMPHOCYTES # (AUTO) 0.9 (1.0-3.2); LYMPHOCYTES % 12.9 % (18.0-39.1); MEAN CORPUSCULAR HEMOGLOBIN 31.4 pg (28-32); MEAN CORPUSCULAR HGB CONC 30.4 g/dL (31-35); MEAN CORPUSCULAR VOLUME 103.3 fL (81-99); MONOCYTES # (AUTO) 0.5 (0.2-0.8); NEUTROPHILS # (AUTO) 4.9 (2.1-6.9); NEUTROPHILS % 74.1 % (38.7-80.0); PLATELET COUNT 296 x10e3/uL (140-360); RED BLOOD COUNT 3.03 x10e6/uL (3.6-5.1); RED CELL DISTRIBUTION WIDTH 13.9 % (11.7-14.4); WHITE BLOOD COUNT 6.59 x10e3/uL (4.8-10.8)
[2024-09-18 13:10] LABS: ANION GAP 16.4 mmol/L (8-16); CALCIUM 8.8 mg/dL (8.4-10.2); CREATININE, SERUM 1.05 mg/dL (0.57-1.11)
[2024-09-18 13:11] LABS: POTASSIUM 3.4 mmol/L (3.5-5.1)
[2024-09-18] MEDS: PHENAZOPYRIDINE HCL 100 MG TAB ONE (14:25)
[2024-09-18] MEDS: FLUCONAZOLE 200 MG/100 ML IV ONE (14:50)
[2024-09-18 15:50] VITALS: BP 168/72; PULSE 87; RESP 19; TEMP 97.8; O2SAT 94
== END | disposition home or self-care (01) ==
LOC: OR 11:15
PROVIDERS: ATTEND Urology
DX: Z46.6 Encounter for fitting and adjustment of urinary device (principal); Z87.442 Personal history of urinary calculi; Z87.448 Personal history of other diseases of urinary system; N28.89 Other specified disorders of kidney and ureter; N13.30 Unspecified hydronephrosis; N81.10 Cystocele, unspecified; N81.6 Rectocele; N36.41 Hypermobility of urethra; N36.2 Urethral caruncle; N95.2 Postmenopausal atrophic vaginitis; E11.9 Type 2 diabetes mellitus without complications; I10 Essential (primary) hypertension; I69.354 Hemiplegia and hemiparesis following cerebral infarction affecting left non-dominant side; Z88.2 Allergy status to sulfonamides; Z88.8 Allergy status to other drugs, medicaments and biological substances; Z88.1 Allergy status to other antibiotic agents; Z91.041 Radiographic dye allergy status; Z79.02 Long term (current) use of antithrombotics/antiplatelets; Z79.899 Other long term (current) drug therapy
CPT/HCPCS: 36415; 52351; 74420; 80048; 82948; 85025; 87086; C1769; J0696; J1308; J1450; J1580; J2003; J2405; J2704; J3010; J7030; J1100

== ENCOUNTER 2024-09-30 16:06 | Inpatient (IN) | payer MEDICARE ==
[2024-09-30] VITALS (8 sets, daily range): BP systolic 95–113; BP diastolic 52–65; PULSE 87–100; RESP 14–17; TEMP 99–100.5; O2SAT 96–100
[~2024-09-30] VITALS: Ht 152.4 cm; Wt 45.4 kg
[2024-09-30 17:16] LABS: BASOPHILS % 0.6 % (0.0-1.0); EOSINOPHILS % 2.7 % (0.0-6.0); LYMPHOCYTES % 9.1 % (18.0-39.1); MONOCYTES % 5.9 % (4.4-11.3); NEUTROPHILS % 81.1 % (38.7-80.0); RED CELL DISTRIBUTION WIDTH 14.7 % (11.7-14.4)
[2024-09-30 17:29] LABS: INR 1.87
[2024-09-30 17:41] LABS: EST GLOMERULAR FILTRATION RATE 58.0 ML/MIN (>=60)
[2024-09-30] MEDS: SODIUM CHLORIDE 0.9% 1000ML 2,100 ML IV ONE (17:50)
[2024-09-30] MEDS ORDERED: SODIUM CHLORIDE 0.9% 1000ML 1,000 ML ONE (17:53)
[2024-09-30] MEDS ORDERED: Morphine 4mg INJECTION 4 MG/ML INJ IV PRN (18:00)
[2024-09-30] MEDS: Vancomycin IV 1 GM in SODIUM CHLORIDE 0.9% 250ML 250 ML IV ONE (19:11)
[2024-09-30] MEDS: ACETAMINOPHEN 1000 MG/100 ML IV STA (19:11)
[2024-09-30] MEDS: SODIUM CHLORIDE 0.9% 1000ML 1,000 ML IV SCH (19:12)
[2024-09-30] MEDS: KETOROLAC TROMETHAMINE 30 MG/ML VIAL IV STA (19:12)
[2024-09-30 19:15] LABS: LEUKOCYTE ESTERASE ,URINE MODERATE (NEGATIVE); PROTEIN,URINE DIPSTICK 2+ (NEGATIVE); URINE UROBILINOGEN 0.2 mg/dL (0.2 - 1)
[2024-09-30 19:27] LABS: WBC,URINE (MAN) 21-50 /HPF (0-5)
[2024-09-30 19:28] LABS: HYALINE CASTS 0-1 (0-1)
[2024-09-30] MEDS ORDERED: IPRATROPIUM BROMIDE 0.02% 2.5 ML NEB NEB PRN (21:15)
[2024-09-30] MEDS ORDERED: DOCUSATE SODIUM 100 MG CAP PO PRN (21:15)
[2024-09-30] MEDS ORDERED: MAGNESIUM/ALUMINUM/SIMETHICONE 30 ML UDC PO PRN (21:15)
[2024-09-30] MEDS ORDERED: GUAIFENESIN/DEXTROMETHORPHAN LIQD 5 ML UDC PO PRN (21:15)
[2024-09-30] MEDS: FLUCONAZOLE 100 MG/NS 50 ML 50 ML IV ONE (22:46)
[2024-09-30] MEDS: ATORVASTATIN 20 MG TAB PO SCH (22:47)
[2024-09-30] MEDS: DULOXETINE HCL 20 MG DELAYED RELEASE PO SCH (22:51)
[2024-10-01] VITALS (22 sets, daily range): BP systolic 120–149; BP diastolic 60–88; PULSE 79–101; RESP 11–26; TEMP 98.2–98.9; O2SAT 97–100
[2024-10-01 06:35] LABS: BASOPHILS % 0.7 % (0.0-1.0); EOSINOPHILS % 3.1 % (0.0-6.0); LYMPHOCYTES % 9.1 % (18.0-39.1); MONOCYTES % 9.8 % (4.4-11.3); NEUTROPHILS % 76.7 % (38.7-80.0); RED CELL DISTRIBUTION WIDTH 14.6 % (11.7-14.4)
[2024-10-01 06:58] LABS: EST GLOMERULAR FILTRATION RATE 77.0 ML/MIN (>=60)
[2024-10-01 07:00] LABS: % IRON SATURATION 11.0 % (15-50)
[2024-10-01] MEDS: AMIODARONE HCL 200 MG TAB PO SCH (09:10)
[2024-10-01] MEDS: SUCRALFATE 1 GM TAB PO SCH (09:10)
[2024-10-01] MEDS: MULTIVITAMINS/MINERALS TAB PO SCH (09:10)
[2024-10-01] MEDS: APIXABAN 5 MG TABLET PO SCH (09:10)
[2024-10-01] MEDS: PANTOPRAZOLE SODIUM 20 MG TABLET.DR PO SCH (09:11)
[2024-10-01] MEDS: HYDROCODONE/APAP 7.5MG-325MG 1 EA TAB PO PRN (14:13)
[2024-10-02] VITALS (16 sets, daily range): BP systolic 137–164; BP diastolic 68–92; PULSE 88–106; RESP 11–33; TEMP 97.4–98.7; O2SAT 92–100
[2024-10-02 06:42] LABS: BASOPHILS % 0.7 % (0.0-1.0); EOSINOPHILS % 4.7 % (0.0-6.0); LYMPHOCYTES % 13.8 % (18.0-39.1); MONOCYTES % 9.5 % (4.4-11.3); NEUTROPHILS % 70.9 % (38.7-80.0); RED CELL DISTRIBUTION WIDTH 14.6 % (11.7-14.4)
[2024-10-02 07:03] LABS: EST GLOMERULAR FILTRATION RATE 81 ML/MIN (>=60)
[2024-10-02 07:15] LABS: % IRON SATURATION 20 % (15-50)
[2024-10-02] MEDS ORDERED: BALSAM PERU/CASTOR OIL 60 GM OINT...G. TP SCH (09:00)
[2024-10-02] MEDS: BALSAM PERU/CASTOR OIL 28.35 GM OINT...G. TP SCH (09:53)
[2024-10-02] MEDS: ACETAMINOPHEN 325 MG TAB PO PRN (13:36)
[2024-10-02] MEDS: Vancomycin IV 1 GM in SODIUM CHLORIDE 0.9% 250ML 250 ML IV SCH (15:47)
[2024-10-02] MEDS: METOPROLOL SUCCINATE 50 MG TAB XL PO PRN (20:39)
[2024-10-03] VITALS (28 sets, daily range): BP systolic 119–171; BP diastolic 69–85; PULSE 90–121; RESP 12–24; TEMP 98.1–98.9; O2SAT 96–100
[2024-10-03 06:24] LABS: BASOPHILS % 1.3 % (0.0-1.0); EOSINOPHILS % 6.8 % (0.0-6.0); LYMPHOCYTES % 15.7 % (18.0-39.1); MONOCYTES % 8.2 % (4.4-11.3); NEUTROPHILS % 67.3 % (38.7-80.0); RED CELL DISTRIBUTION WIDTH 14.4 % (11.7-14.4)
[2024-10-03 06:50] LABS: EST GLOMERULAR FILTRATION RATE 86.0 ML/MIN (>=60)
[2024-10-04] VITALS (25 sets, daily range): BP systolic 130–174; BP diastolic 65–92; PULSE 66–106; RESP 12–33; TEMP 97.8–98.9; O2SAT 95–100
[2024-10-04 06:50] LABS: BASOPHILS % 1.4 % (0.0-1.0); EOSINOPHILS % 7.4 % (0.0-6.0); LYMPHOCYTES % 15.3 % (18.0-39.1); MONOCYTES % 8.8 % (4.4-11.3); NEUTROPHILS % 66.8 % (38.7-80.0); RED CELL DISTRIBUTION WIDTH 14.4 % (11.7-14.4)
[2024-10-04 07:54] LABS: EST GLOMERULAR FILTRATION RATE 85 ML/MIN (>=60)
[2024-10-04] MEDS: LEFLUNOMIDE PO SCH (08:29)
[2024-10-04] MEDS: HYDRALAZINE HCL 20 MG/ML VIAL IV PRN (08:30)
[2024-10-04] MEDS: POTASSIUM CHLORIDE 20MEQ/100ML 100 ML IV SCH (09:42)
[2024-10-04] MEDS: IRON SUCROSE 100 MG in SODIUM CHLORIDE 0.9% 100 ML IV SCH (12:33)
[2024-10-05] VITALS (19 sets, daily range): BP systolic 137–172; BP diastolic 62–89; PULSE 88–118; RESP 14–22; TEMP 96.1–98.4; O2SAT 96–100
[2024-10-05 06:51] LABS: BASOPHILS % 1.8 % (0.0-1.0); EOSINOPHILS % 7.0 % (0.0-6.0); LYMPHOCYTES % 17.1 % (18.0-39.1); MONOCYTES % 9.8 % (4.4-11.3); NEUTROPHILS % 63.8 % (38.7-80.0); RED CELL DISTRIBUTION WIDTH 14.6 % (11.7-14.4)
[2024-10-05 07:09] LABS: EST GLOMERULAR FILTRATION RATE 86 ML/MIN (>=60)
[2024-10-05] MEDS: MULTIVIT-MIN/FERROUS GLUCONATE 9 MG/15 ML LIQUID PO SCH (08:11)
[2024-10-05] MEDS: SUCRALFATE 1 GM/10 ML SUSP PO SCH (12:25)
[2024-10-06] VITALS (9 sets, daily range): BP systolic 133–169; BP diastolic 78–90; PULSE 89–100; RESP 17–20; TEMP 96.2–98.4; O2SAT 94–99
[2024-10-06 07:41] LABS: BASOPHILS % 1.9 % (0.0-1.0); EOSINOPHILS % 8.3 % (0.0-6.0); LYMPHOCYTES % 19.0 % (18.0-39.1); MONOCYTES % 10.2 % (4.4-11.3); NEUTROPHILS % 60.3 % (38.7-80.0); RED CELL DISTRIBUTION WIDTH 14.6 % (11.7-14.4)
[2024-10-06] MEDS: HYDROCODONE/APAP 7.5MG-325MG 1 EA TAB PO PRN (20:18)
[2024-10-06] MEDS: ONDANSETRON HCL INJ 2MG/ML 2ML 2 MG/ML VIAL IV PRN (22:51)
[2024-10-06] MEDS: PROMETHAZINE 12.5MG/ NACL 0.9% 12.5 MG/50 ML BAG IV PRN (23:33)
[2024-10-07] VITALS (9 sets, daily range): BP systolic 151–163; BP diastolic 75–92; PULSE 85–97; RESP 16–18; TEMP 97.3–98.5; O2SAT 96–100
[2024-10-07] MEDS: SODIUM CHLORIDE 0.9% 250ML 250 ML ONE (07:27)
[2024-10-07] MEDS ORDERED: MAGNESIUM HYDROXIDE 30 ML UDC PO ONE (23:30)
[2024-10-08] VITALS (7 sets, daily range): BP systolic 129–168; BP diastolic 59–90; PULSE 76–103; RESP 16–20; TEMP 97.9–98.9; O2SAT 96–99
[2024-10-08] MEDS: MAGNESIUM HYDROXIDE 30 ML UDC PO ONE (05:07)
[2024-10-08 05:51] LABS: BASOPHILS % 1.9 % (0.0-1.0); EOSINOPHILS % 9.5 % (0.0-6.0); LYMPHOCYTES % 18.9 % (18.0-39.1); MONOCYTES % 9.8 % (4.4-11.3); NEUTROPHILS % 59.6 % (38.7-80.0); RED CELL DISTRIBUTION WIDTH 14.6 % (11.7-14.4)
[2024-10-08] MEDS: MELATONIN 3 MG TAB PO PRN (20:23)
[2024-10-09] VITALS (9 sets, daily range): BP systolic 155–184; BP diastolic 84–111; PULSE 78–108; RESP 14–17; TEMP 97.5–98.3; O2SAT 94–99
[2024-10-09 06:49] LABS: BASOPHILS % 1.9 % (0.0-1.0); EOSINOPHILS % 10.3 % (0.0-6.0); LYMPHOCYTES % 17.5 % (18.0-39.1); MONOCYTES % 10.3 % (4.4-11.3); NEUTROPHILS % 59.6 % (38.7-80.0); RED CELL DISTRIBUTION WIDTH 14.7 % (11.7-14.4)
[2024-10-09 07:12] LABS: EST GLOMERULAR FILTRATION RATE 92.0 ML/MIN (>=60)
[2024-10-09] MEDS: APIXABAN 2.5 MG TABLET PO SCH (20:16)
[2024-10-09] MEDS ORDERED: APIXABAN 2.5 MG TABLET PO SCH (21:00)
[2024-10-10] VITALS (9 sets, daily range): BP systolic 122–205; BP diastolic 67–95; PULSE 83–111; RESP 14–20; TEMP 97.5–99.1; O2SAT 95–96
[2024-10-10 13:08] LABS: BASOPHILS % 1.5 % (0.0-1.0); EOSINOPHILS % 7.0 % (0.0-6.0); LYMPHOCYTES % 15.9 % (18.0-39.1); MONOCYTES % 8.1 % (4.4-11.3); NEUTROPHILS % 67.2 % (38.7-80.0); RED CELL DISTRIBUTION WIDTH 14.7 % (11.7-14.4)
== END 2024-10-10 18:00 | disposition home or self-care (01) | DRG 871 ==
LOC: ER 16:25 → ERHOLD 17:56 → ICU 20:05 → MED/SURG2 10-05 19:34
PROVIDERS: ADMIT Family Medicine; ATTEND Family Medicine
PROC: 02HV33Z Insertion of Infusion Device into Superior Vena Cava, Percutaneous Approach (ICD-10-PCS; principal; 2024-09-30)
PROC: 3E0333Z Introduction of Anti-inflammatory into Peripheral Vein, Percutaneous Approach (ICD-10-PCS; 2024-09-30)
DX: A41.9 Sepsis, unspecified organism (principal); G92.8 Other toxic encephalopathy; L89.523 Pressure ulcer of left ankle, stage 3; J18.9 Pneumonia, unspecified organism; R65.21 Severe sepsis with septic shock; D68.9 Coagulation defect, unspecified; I69.354 Hemiplegia and hemiparesis following cerebral infarction affecting left non-dominant side; E44.0 Moderate protein-calorie malnutrition; N13.6 Pyonephrosis; Z68.1 Body mass index [BMI] 19.9 or less, adult; L89.890 Pressure ulcer of other site, unstageable; L89.156 Pressure-induced deep tissue damage of sacral region; D63.8 Anemia in other chronic diseases classified elsewhere; I10 Essential (primary) hypertension; E11.9 Type 2 diabetes mellitus without complications; I48.0 Paroxysmal atrial fibrillation; R32 Unspecified urinary incontinence; R09.02 Hypoxemia; D50.0 Iron deficiency anemia secondary to blood loss (chronic); M06.9 Rheumatoid arthritis, unspecified; M54.50 Low back pain, unspecified; M19.90 Unspecified osteoarthritis, unspecified site; N31.9 Neuromuscular dysfunction of bladder, unspecified; F41.9 Anxiety disorder, unspecified; F32.A Depression, unspecified; Z79.01 Long term (current) use of anticoagulants; Z95.5 Presence of coronary angioplasty implant and graft; Z90.710 Acquired absence of both cervix and uterus; Z91.041 Radiographic dye allergy status; Z88.2 Allergy status to sulfonamides; Z88.1 Allergy status to other antibiotic agents; Z88.8 Allergy status to other drugs, medicaments and biological substances
CPT/HCPCS: 36415; 36569; 70450; 71045; 74176; 80048; 80053; 81001; 82270; 82607; 82728; 82746; 83036; 83540; 83605; 84443; 84466; 85025; 85045; 85610; 85730; 87040; 87071; 87086; 87205; 93005; 94799; 99252; 99284; J0360; J0692; J0696; J1450; J1756; J1885; J2405; J2550; J3480; J7030; J7050

== ENCOUNTER 2024-10-21 16:48 | Inpatient (IN) | payer MEDICARE ==
[~2024-10-21] VITALS: Ht 152.4 cm; Wt 45.4 kg
[2024-10-21 18:15] VITALS: TEMP 98.9
[2024-10-21 19:15] LABS: BASOPHILS % 1.8 % (0.0-1.0); EOSINOPHILS % 8.1 % (0.0-6.0); LYMPHOCYTES % 17.8 % (18.0-39.1); MONOCYTES % 9.7 % (4.4-11.3); NEUTROPHILS % 62.1 % (38.7-80.0); RED CELL DISTRIBUTION WIDTH 17.2 % (11.7-14.4)
[2024-10-21 19:30] VITALS: PULSE 89; RESP 18; O2SAT 99
[2024-10-21 19:36] LABS: EST GLOMERULAR FILTRATION RATE 58 ML/MIN (>=60)
[2024-10-21] MEDS ORDERED: Morphine 4mg INJECTION 4 MG/ML INJ IV PRN (20:30)
[2024-10-21] MEDS ORDERED: SODIUM CHLORIDE 0.9% 100 ML ONE (20:36)
[2024-10-21 20:42] LABS: CORONAVIRUS COVID-19 AG NEGATIVE (NEGATIVE); STREPTOCOCCUS GRP A ANTIGEN NEGATIVE (NEGATIVE)
[2024-10-21] MEDS ORDERED: SODIUM CHLORIDE 0.9% 250ML 250 ML IV ONE (20:45)
[2024-10-21 20:49] VITALS: PULSE 89; RESP 15
[2024-10-21 23:13] VITALS: BP 145/71; PULSE 85; RESP 18; TEMP 97.8; O2SAT 100
[2024-10-22] VITALS (12 sets, daily range): BP systolic 114–160; BP diastolic 63–102; PULSE 85–95; RESP 16–20; TEMP 97.8–99; O2SAT 95–100
[2024-10-22] MEDS ORDERED: PROTONIX20 MG PO (02:18)
[2024-10-22] MEDS ORDERED: AMLODIPINE BESYL5 MG PO (02:20)
[2024-10-22] MEDS ORDERED: MEGESTROL ACETA20 MG PO (02:26)
[2024-10-22 02:27] LABS: % IRON SATURATION 23.0 % (15-50)
[2024-10-22] MEDS ORDERED: SODIUM CHLORIDE 0.9% 250ML 250 ML ONE ×2 (04:45→11:39)
[2024-10-22 05:02] LABS: BASOPHILS % 1.8 % (0.0-1.0); EOSINOPHILS % 9.3 % (0.0-6.0); LYMPHOCYTES % 18.9 % (18.0-39.1); MONOCYTES % 10.8 % (4.4-11.3); NEUTROPHILS % 58.8 % (38.7-80.0); RED CELL DISTRIBUTION WIDTH 17.0 % (11.7-14.4)
[2024-10-22 05:19] LABS: EST GLOMERULAR FILTRATION RATE 59 ML/MIN (>=60)
[2024-10-22] MEDS ORDERED: METOPROLOL SUCCINATE 50 MG TAB XL PO PRN (06:45)
[2024-10-22] MEDS ORDERED: HYDROCODONE/APAP 7.5MG-325MG 1 EA TAB PO PRN (06:45)
[2024-10-22] MEDS: SUCRALFATE 1 GM TAB PO SCH (08:59)
[2024-10-22] MEDS: GABAPENTIN 400 MG CAP PO SCH (08:59)
[2024-10-22] MEDS: APIXABAN 5 MG TABLET PO SCH (08:59)
[2024-10-22] MEDS: MEGACE 400 MG / 10 ML CUP PO SCH (08:59)
[2024-10-22] MEDS: PANTOPRAZOLE SOD 40 MG TABEC PO SCH (08:59)
[2024-10-22] MEDS: NON-FORMULARY MEDICATION (Leflunomide 20 MG) PO SCH (09:00)
[2024-10-22] MEDS: AMIODARONE HCL 200 MG TAB PO SCH (09:00)
[2024-10-22] MEDS: IRON SUCROSE 100 MG in SODIUM CHLORIDE 0.9% 100 ML IV SCH (09:05)
[2024-10-22] MEDS: BALSAM PERU/CASTOR OIL 28.35 GM OINT...G. TP SCH (17:08)
[2024-10-22] MEDS: BUSPIRONE HCL 5 MG TAB PO SCH (21:20)
[2024-10-22] MEDS: DULOXETINE HCL 20 MG DELAYED RELEASE PO SCH (21:20)
[2024-10-22] MEDS: SOLIFENACIN SUCCINATE 5 MG TAB PO SCH (21:20)
[2024-10-22] MEDS: ATORVASTATIN 40 MG TAB PO SCH (21:20)
[2024-10-23] VITALS (7 sets, daily range): BP systolic 145–177; BP diastolic 77–88; PULSE 77–98; RESP 17–20; TEMP 97.3–99.2; O2SAT 97–99
[2024-10-23] MEDS: CYANOCOBALAMIN INJ 1,000 MCG/ML VIAL IM STA (01:21)
[2024-10-23 08:42] LABS: BASOPHILS % 1.4 % (0.0-1.0); EOSINOPHILS % 7.2 % (0.0-6.0); LYMPHOCYTES % 14.7 % (18.0-39.1); MONOCYTES % 9.7 % (4.4-11.3); NEUTROPHILS % 66.7 % (38.7-80.0); RED CELL DISTRIBUTION WIDTH 17.2 % (11.7-14.4)
[2024-10-23 08:44] LABS: EST GLOMERULAR FILTRATION RATE 73 ML/MIN (>=60)
[2024-10-23] MEDS: CYANOCOBALAMIN INJ 1,000 MCG/ML VIAL IM SCH (10:16)
[2024-10-23] MEDS: COLLAGENASE 5 GM TUBE TOP SCH (10:19)
[2024-10-23] MEDS: ACETAMINOPHEN 325 MG TAB PO PRN (10:19)
[2024-10-23] MEDS: METOPROLOL SUCCINATE 50 MG TAB XL PO SCH (10:38)
[2024-10-23] MEDS: HYDROCODONE/APAP 7.5MG-325MG 1 EA TAB PO PRN (15:38)
[2024-10-23] MEDS: CHOLESTYRAMINE 4 GM PACKET PO SCH (17:25)
[2024-10-23] MEDS: ONDANSETRON HCL INJ 2MG/ML 2ML 2 MG/ML VIAL IV PRN (17:25)
[2024-10-23] MEDS: ENOXAPARIN SOD INJ 40 MG/0.4 ML SYR SC SCH (21:19)
[2024-10-24] VITALS: BP 174/91; PULSE 82; RESP 18; TEMP 98.6; O2SAT 99
[2024-10-24 04:00] VITALS: BP 163/78; PULSE 79; RESP 18; TEMP 97.9; O2SAT 97
[2024-10-24 07:11] LABS: BASOPHILS % 1.5 % (0.0-1.0); EOSINOPHILS % 8.9 % (0.0-6.0); LYMPHOCYTES % 20.0 % (18.0-39.1); MONOCYTES % 9.6 % (4.4-11.3); NEUTROPHILS % 59.5 % (38.7-80.0); RED CELL DISTRIBUTION WIDTH 17.2 % (11.7-14.4)
[2024-10-24 08:45] VITALS: PULSE 81; RESP 16; O2SAT 94
[2024-10-24 09:03] VITALS: BP 164/79; PULSE 80; RESP 16; TEMP 98.3; O2SAT 95
[2024-10-24 12:00] VITALS: BP 153/80; PULSE 74; RESP 17; TEMP 98.4; O2SAT 98
[2024-10-24 16:00] VITALS: BP 144/79; PULSE 73; RESP 17; TEMP 97.2; O2SAT 100
== END 2024-10-24 18:15 | disposition home or self-care (01) | DRG 811 ==
LOC: ER 16:51 → ERHOLD 20:30 → MED/SURG3 22:47
PROVIDERS: ADMIT Family Medicine; ATTEND Family Medicine
PROC: 30233N1 Transfusion of Nonautologous Red Blood Cells into Peripheral Vein, Percutaneous Approach (ICD-10-PCS; principal; 2024-10-22)
DX: D50.0 Iron deficiency anemia secondary to blood loss (chronic) (principal); G93.41 Metabolic encephalopathy; L89.524 Pressure ulcer of left ankle, stage 4; I69.354 Hemiplegia and hemiparesis following cerebral infarction affecting left non-dominant side; L89.890 Pressure ulcer of other site, unstageable; L89.156 Pressure-induced deep tissue damage of sacral region; I12.9 Hypertensive chronic kidney disease with stage 1 through stage 4 chronic kidney disease, or unspecified chronic kidney disease; E11.22 Type 2 diabetes mellitus with diabetic chronic kidney disease; E11.51 Type 2 diabetes mellitus with diabetic peripheral angiopathy without gangrene; I48.0 Paroxysmal atrial fibrillation; N18.32 Chronic kidney disease, stage 3b; R53.81 Other malaise; F41.9 Anxiety disorder, unspecified; F32.A Depression, unspecified; R09.02 Hypoxemia; G89.4 Chronic pain syndrome; M06.9 Rheumatoid arthritis, unspecified; M54.50 Low back pain, unspecified; Z11.52 Encounter for screening for COVID-19; Z99.3 Dependence on wheelchair; Z79.01 Long term (current) use of anticoagulants; Z90.710 Acquired absence of both cervix and uterus; Z91.041 Radiographic dye allergy status; Z88.2 Allergy status to sulfonamides; Z88.1 Allergy status to other antibiotic agents; Z88.8 Allergy status to other drugs, medicaments and biological substances; Z87.891 Personal history of nicotine dependence
CPT/HCPCS: 36415; 36555; 71045; 80053; 82550; 82607; 82728; 82746; 82948; 83518; 83540; 83690; 83880; 84466; 84484; 85025; 85045; 86850; 86870; 86880; 86900; 86905; 86920; 86922; 87070; 93005; 94799; 99001; 99252; 99284; J1650; J1756; J2405; J2470; J2543; J3420; J7050; P9016